=== PATIENT | male | born 1955 | race American Indian/Alaskan Native ===

== ENCOUNTER 2019-03-18 10:37 | Day surgery (SDC) | payer OTHER ==
[~2019-03-18 10:37] MED LIST: NACL 0.9% 1000 ML 1,000 ML IV SCH
[2019-03-18] MEDS ORDERED: DIPRIVAN 10 MG/ML IV ONE ×2 (11:01)
--- NOTE | 2019-03-18 12:03 | Anesthesia Day of Surgery ---
Anesthesia Day of Surgery - Day of Surgery Patient Examined: Yes Patient H&P Reviewed: Yes Patient is NPO: Yes Beta Blockers: No Cardiac Clearance: No Pulmonary Clearance: No Victor Hugo's Test: N/A
--- NOTE | 2019-03-18 12:05 | Anesthesia Consultation ---
Anesthesia Consult and Med Hx - Airway ROM Head & Neck: Adequate Mental/Hyoid Distance: Adequate Mallampati Class: Class II Intubation Access Assessment: Probably Good - Pulmonary Exam CTA: Yes - Cardiac Exam Cardiac Exam: RRR - Pre-Operative Health Status ASA Pre-Surgery Classification: ASA2 Proposed Anesthetic Plan: General, MAC - Endocrine Hx Non-Insulin Dependent Diabetes: Yes
[2019-03-18] MEDS ORDERED: XYLOCAINE MPF 2% ONE (13:30)
--- NOTE | 2019-03-18 13:41 | Post Anesthesia Evaluation ---
- Post Anesthesia Evaluation Patient Participated: Yes Airway Patent: Yes Stable Respiratory Function: Yes Nausea/Vomiting: No Temp > 96.8F: Yes Pain Manageable: Yes Adequeate Hydration: Yes Anesthesia Complications: No Block Receding Appropriately: Not Applicable Patient on Ventilator: No
--- NOTE | 2019-03-18 13:48 | Operative Report ---
Operative Report Operative Report: Date of procedure: 03/18/2019 Procedure: Colonoscopy with ablation. Attending physician: Derick Carson MD Career And Guidance Counselor: Derick Carson MD Indication: Patient is a 63-year-old male who presents for colonoscopy because of anemia. A colonoscopy serves to evaluate patient so that treatment may be directed based on the findings. Consent: Informed consent was obtained after advising the patient and family regarding nature of this procedure, its indications, potential benefits as well as possible complications including but not limited to bleeding perforation and adverse reaction to medication, infection as well as other cardiopulmonary complications. An informed written and verbal consent was then obtained after due opportunity was provided for questions and answers. Monitoring: Patient was monitored continuously with pulse oximetry and electrocardiographic recordings as well as blood pressure recordings. Vital signs remained stable throughout this procedure with no untoward events. Preoperative assessment: Patient was assessed immediately prior to this procedure for capacity to tolerate monitored anesthesia care and moderate sedation as well as general anesthesia. Patient's ASA classification is 2, Mallampati class is 2, Hyomental distance is 3. Instrument: Olympus video colonoscope Medications: Propofol given intravenously in divided doses. For details please refer to anesthesia records. Description of procedure: Patient was placed in the left lateral decubitus position after achieving sedation, a digital rectal examination was performed following which the colonoscope was introduced into the anal verge and advanced to the cecum which was identified by the cecal valve, the appendiceal orifice, as well as by the cecal strap and direct transillumination. The colonoscope was subsequently withdrawn with careful inspection of all mucosal surfaces. Patient tolerated this procedure well and was subsequently taken to the recovery room. The following findings were noted. Findings: The preparation was fair. Patient has some scattered liquid stool throughout the colon. There were diverticula a few seen in the sigmoid colon. Patient 2 diminutive sigmoid polyps that were ablated. The rest of the colon was normal. On the retroflexed view at the anal verge, patient had internal hemorrhoids. Impression: Diminutive sigmoid colon polyps status post ablation Retained stool Mild Diverticular disease of the colon. Internal hemorrhoids. Plan: High-fiber diet. Consider Repeat colonoscopy in 1 year, due to retained stool
--- NOTE | 2019-03-18 13:48 | Discharge Summary ---
Short Stay Discharge Plan Activity: advance as tolerated Weight Bearing Status: Weight Bear as Tolerated Diet: regular Follow up with: [facility] [Primary Care Provider] - 7 Days
[2019-03-18 14:15] VITALS: BP 123/53
== END 2019-03-18 10:38 | disposition home or self-care (01) ==
LOC: GIO 10:37
PROVIDERS: ATTEND Internal Medicine Gastroenterology
DX: K62.1 Rectal polyp (principal); K57.30 Diverticulosis of large intestine without perforation or abscess without bleeding; K64.8 Other hemorrhoids; D64.9 Anemia, unspecified; E11.9 Type 2 diabetes mellitus without complications; Z88.0 Allergy status to penicillin; Z79.84 Long term (current) use of oral hypoglycemic drugs; Z79.82 Long term (current) use of aspirin; Z98.890 Other specified postprocedural states
CPT/HCPCS: 45388; 82962; 88305; J2704; J7030